=== PATIENT | male | born 1955 | race Caucasian/White ===

== ENCOUNTER 2019-02-11 08:14 | Inpatient (IN) ==
[2019-02-11 09:33] LABS: UR AMPHETAMINES QUAL NONE DETECTED (NONE DETECT); UR BARBITUATES QUAL NONE DETECTED (NONE DETECT); UR BENZODIAZEPIN QUAL PRESUMPTIVE POSITIVE (NONE DETECT); UR CANNABINOIDS QUAL NONE DETECTED (NONE DETECT); UR COCAINE QUAL NONE DETECTED (NONE DETECT); UR METHADONE QUAL NONE DETECTED (NONE DETECT); UR METHAMPHETAMINE QUAL PRESUMPTIVE POSITIVE (NONE DETECT); UR OPIATES QUAL NONE DETECTED (NONE DETECT); UR OXYCODONE QUAL NONE DETECTED (NONE DETECT); UR PCP QUAL NONE DETECTED (NONE DETECT); UR PROPOXYPHENE QUAL NONE DETECTED (NONE DETECT); UR TCA QUAL NONE DETECTED (NONE DETECT)
[2019-02-11] MEDS ORDERED: CATAPRES PO ONE (09:33)
[2019-02-11] MEDS ORDERED: LOPRESSOR PO ONE (10:22)
[2019-02-11] MEDS ORDERED: SALINE LOCK IV FLUID XX ONE ×2 (13:40→15:27)
[2019-02-11] MEDS ORDERED: DESYREL PO PRN (14:25)
[2019-02-11] MEDS ORDERED: ZOFRAN IV PRN (14:25)
[2019-02-11] MEDS ORDERED: TUBERSOL ID ONE (14:25)
[2019-02-11] MEDS ORDERED: ZOFRAN ODT PO PRN (14:25)
[2019-02-11] MEDS ORDERED: IMODIUM PO PRN ×2 (14:25)
[2019-02-11] MEDS ORDERED: ZOFRAN IM PRN (14:25)
[2019-02-11] MEDS ORDERED: NICOTINE GUM BUCCAL PRN (14:25)
[2019-02-11] MEDS ORDERED: MAALOX PLUS LIQUID PO PRN (14:25)
[2019-02-11] MEDS ORDERED: SENOKOT PO PRN (14:25)
[2019-02-11] MEDS ORDERED: TYLENOL PO PRN (14:25)
[2019-02-11] MEDS ORDERED: DULCOLAX PR PRN (14:25)
[2019-02-11] MEDS ORDERED: NICODERM PATCH TD PRN (14:25)
[2019-02-11] MEDS ORDERED: PHENOBARBITAL IV PRN (14:25)
[2019-02-11] MEDS ORDERED: D5W 1,000 ML IV PRN (14:25)
[2019-02-11 14:45] LABS: HEMATOCRIT 45.9 % (42.0-52.0); HEMOGLOBIN 16.5 g/dL (14.0-18.0); MCH 30.4 PG (27-31); MCHC 35.9 g/dL (33-37); MCV 84.5 FL (81-99); MPV 10.5 FL (7.4-10.4); RBC 5.43 XMIL (4.7-6.1); RDW 13.3 % (11.5-14.5); WBC 13.98 X1000 (4.8-10.8)
[2019-02-11 14:47] LABS: INR 1.02; PROTIME 13.9 Seconds (11.0-16.0)
[2019-02-11] MEDS ORDERED: FLU VACCINE IM ONE (15:14)
[2019-02-11 15:17] LABS: AGAP 15; ALBUMIN 4.8 g/dL (3.5-5.0); ALKALINE PHOSPHATASE 104 U/L (32-122); AMYLASE 36 U/L (20-200); BUN 15 mg/dL (8-22); CHLORIDE 100 mmol/L (98-107); COSMO 288; CREATININE 0.8 mg/dL (0.7-1.2); ESTIMATED GFR > 60; GLUCOSE 170 mg/dL (70-104); GOT 26 U/L (10-34); GPT 32 U/L (10-44); LIPASE 13 U/L (13-60); POTASSIUM 4.3 mmol/L (3.5-5.1); SODIUM 142 mmol/L (136-145); TCO2 26 mmol/L (25-35); TOTAL PROTEIN 7.8 g/dL (6.3-8.3)
[2019-02-11] MEDS ORDERED: BENTYL PO PRN (15:27)
[2019-02-11] MEDS ORDERED: PNEUMOVAX 23 IM ONE (15:45)
[2019-02-11] MEDS: LIBRIUM PO SCH ×2 (15:58→21:14)
[2019-02-11] MEDS ORDERED: M.V.I.-12 10 ML, FOLIC ACID 1 MG, MAGNESIUM SULFATE 1 GM, THIAMINE 100 MG in NS 1,000 ML IV ONE (16:30)
[2019-02-11] MEDS: ATARAX PO PRN (18:32)
[2019-02-11] MEDS: EFFEXOR XR PO SCH ×2 (21:14)
[2019-02-11] MEDS: SEROQUEL PO PRN (21:25)
[2019-02-12] MEDS: LIBRIUM PO SCH ×5 (04:39→23:29)
--- NOTE | 2019-02-12 05:50 | PROGRESS NOTE ---
DATE: 02/12/2019 SUBJECTIVE: Patient without any new complaints. He states that he had a terrible day all day yesterday but it did start to improve last night after treatment began. Denies any fevers or chills. PHYSICAL EXAMINATION: Vital Signs: Reviewed, temperature 98 degrees, pulse 91, respiratory 20, BP 102/74. General: The patient is awake. He is in no respiratory distress. HEENT: Normocephalic. Neck: Supple. Cardiovascular: Regular rate. Chest: Clear. Abdomen: Soft. Extremities: Moves all extremities. Neurologic: No changes. ASSESSMENT: 1. Nausea and vomiting. 2. Abdominal pain. 3. Myalgias. 4. Paresthesias. 5. Paroxysmal sweating. 6. Hypertension. 7. Diabetes. 8. High cholesterol. 9. Polysubstance use and abuse. PLAN: We will continue the patient in the hospital. Continue treatment. Continue education. We will wean Librium as tolerated. cc: Holger Wilkerson MD
[2019-02-12] MEDS: PROTONIX PO SCH (06:23)
[2019-02-12] MEDS: ZOCOR PO SCH (08:07)
[2019-02-12] MEDS: GLUCOTROL PO SCH (08:07)
[2019-02-12] MEDS: THERA M PLUS PO SCH (08:07)
[2019-02-12] MEDS: PRINIVIL PO SCH (08:07)
[2019-02-12] MEDS: FOLIC ACID PO SCH (08:08)
[2019-02-12] MEDS: VITAMIN B-1 PO SCH (08:08)
[2019-02-12] MEDS: GLUCOPHAGE PO SCH ×3 (08:08→16:18)
[2019-02-12] MEDS: FLOMAX PO SCH (08:08)
[2019-02-12] MEDS: ATARAX PO PRN (11:24)
[2019-02-12] MEDS: MOTRIN PO PRN (14:43)
[2019-02-12] MEDS: ROBAXIN PO PRN (14:43)
[2019-02-12] MEDS: EFFEXOR XR PO SCH ×2 (22:07→22:08)
[2019-02-12] MEDS: SEROQUEL PO PRN (22:09)
[2019-02-13] MEDS: PROTONIX PO SCH (06:06)
[2019-02-13] MEDS: GLUCOPHAGE PO SCH ×4 (06:06→15:52)
[2019-02-13] MEDS: LIBRIUM PO SCH ×4 (06:06→23:15)
[2019-02-13] MEDS: ZOCOR PO SCH (09:04)
[2019-02-13] MEDS: FOLIC ACID PO SCH (09:04)
[2019-02-13] MEDS: GLUCOTROL PO SCH (09:05)
[2019-02-13] MEDS: PRINIVIL PO SCH (09:06)
[2019-02-13] MEDS: VITAMIN B-1 PO SCH (09:06)
[2019-02-13] MEDS: FLOMAX PO SCH (09:07)
[2019-02-13] MEDS: THERA M PLUS PO SCH (09:07)
[2019-02-13] MEDS: MOTRIN PO PRN (09:30)
[2019-02-13] MEDS: ROBAXIN PO PRN ×2 (09:30→20:28)
[2019-02-13] MEDS: ATARAX PO PRN ×2 (10:28→20:28)
[2019-02-13] MEDS: SEROQUEL PO PRN (20:15)
[2019-02-13] MEDS: EFFEXOR XR PO SCH ×2 (20:15)
[2019-02-14] MEDS: ATARAX PO PRN ×2 (04:00→10:17)
[2019-02-14] MEDS: LIBRIUM PO SCH (06:33)
[2019-02-14] MEDS: GLUCOPHAGE PO SCH ×2 (06:33→11:08)
[2019-02-14] MEDS: PROTONIX PO SCH (06:33)
[2019-02-14] MEDS: THERA M PLUS PO SCH (08:34)
[2019-02-14] MEDS: PRINIVIL PO SCH (08:34)
[2019-02-14] MEDS: FLOMAX PO SCH (08:34)
[2019-02-14] MEDS: GLUCOTROL PO SCH (08:34)
[2019-02-14] MEDS: ZOCOR PO SCH (08:34)
[2019-02-14] MEDS: FOLIC ACID PO SCH (08:35)
[2019-02-14] MEDS: VITAMIN B-1 PO SCH (08:35)
--- NOTE | 2019-02-14 08:37 | PROGRESS NOTE ---
DATE: 02/13/2019 SUBJECTIVE: Patient notes that overall he thinks he is doing better. He had a much better evening yesterday. He is much more calm this morning. PHYSICAL EXAMINATION: Vital Signs: Reviewed. General: Awake, alert, in no respiratory distress. HEENT: Normocephalic. Neck: Supple. Cardiovascular: Regular rate and rhythm. Chest: Clear. Abdomen: Soft. Extremities: Moves all extremities. Neurologic: No changes. ASSESSMENT: 1. Nausea, vomiting, abdominal pain. 2. Myalgias. 3. Paresthesias. 4. Paroxysmal sweating. 5. Tremors, resolved. 6. Chronic anxiety and depression. 7. Hypertension. 8. Diabetes. 9. Benzodiazepine abuse and withdrawal. PLAN: We will continue the patient in the hospital and continue to wean Suboxone. Continue to wean Librium as tolerated. Hopefully can discharge home over the next 1 or 2 days. TIME SPENT: 45 minutes. Counseling. cc: Holger Wilkerson MD
[2019-02-14 13:15] VITALS: BP 151/80
--- NOTE | 2019-02-15 06:43 | DISCHARGE SUMMARY ---
ADMISSION DATE: 02/11/2019 DISCHARGE DATE: 02/14/2019 DISCHARGE DIAGNOSES: 1. Nausea and vomiting. 2. Abdominal pain. 3. Myalgias. 4. Paresthesias. 5. Tremors. 6. Paroxysmal sweating. 7. Hypertension. 8. Diabetes. 9. High cholesterol. CONSULTATIONS: None. PROCEDURES: None. BRIEF HOSPITAL COURSE: The patient is a 63-year-old male who presented to [facility] program secondary to nausea, vomiting, abdominal pain, myalgias, and paresthesias. The patient was treated in the usual fashion, placed on Librium taper. Counseling was performed each day by myself. DISPOSITION: Patient will be discharged home, will follow up outpatient with treatment facility of choice. Discussed with him that he needs outpatient life counseling as well as drug counseling. Avoid stressful situations. Avoid benzodiazepines and alcohol for his stress management. Did discharge him with a 3 day Librium taper as well as hydroxyzine as needed. TIME SPENT: Greater than 30 minutes was spent in total care. cc: Holger Wilkerson MD
--- NOTE | 2019-02-16 07:20 | HISTORY AND PHYSICAL ---
CHIEF COMPLAINT: Nausea and vomiting. HISTORY OF PRESENT ILLNESS: The patient is a 63-year-old male who presented [facility] secondary to nausea, vomiting, abdominal pain, tremors, myalgias. States he has been trying to detox at home, but he has been unsuccessful. He notes that his withdrawal symptoms become severe. He starts having nausea, vomiting, and crampy abdominal pain. States that at the worse point, he was unable to eat or drink, and therefore, he came in. SOCIAL HISTORY: The patient is . He is employed at [employer]. Lives at home in [place]. PAST MEDICAL HISTORY: Significant for hypertension, diabetes, high cholesterol, chronic anxiety, depression. He does have a history of seizures 13 years ago. MEDICATIONS: Glipizide 10, lisinopril 20, metformin 500, simvastatin, Effexor XR, Klonopin 2 mg 3 times daily, Flomax 0.4 daily. ALLERGIES: No known drug allergies. REVIEW OF SYSTEMS: CIWA score is elevated at 24 secondary to moderate tremors while at rest, physical sweating, nausea, vomiting, abdominal pain, occasional dry heaves, anxious, nervous, fidgety, unable to sit still, has difficulty carrying on a direct conversation, easily agitated, having diarrhea. Denies dysuria, frequency, urgency, constipation, melena, hematochezia. Denies weight loss, weight gain. Denies chest pain, palpitations. Denies fevers. Does have paroxysmal sweating, nocturnal chills. SUBSTANCE ABUSE HISTORY: The patient was in the [facility] for outpatient counseling greater than 10 years ago. Notes that benzodiazepines have started to negatively affect his life. Notes he has been taking too many pills for too long. Denies chest pain or palpitations. States that he has started using alcohol in his 20s. Currently rarely drinks. Started depressants around age 45, has progressed up to 2 mg 3 times a day, frequently takes more than that. Does not use opiates on any regular basis. FAMILY HISTORY: Noncontributory. PHYSICAL EXAMINATION: VITAL SIGNS: Reviewed. GENERAL: The patient is awake, alert. He is in no apparent respiratory distress. HEENT: Normocephalic. NECK: Supple. CARDIOVASCULAR: Regular rate. No murmurs. CHEST: Clear, nonlabored. ABDOMEN: Soft, nondistended. EXTREMITIES: Moves all extremities. NEUROLOGIC: Grossly intact. SKIN: Warm and dry. No rashes. ASSESSMENT: 1. Nausea, vomiting. 2. Abdominal pain 3. Paroxysmal sweating. 4. Tremors. 5. Benzodiazepine abuse, withdrawal, and stabilization. 6. Chronic anxiety. 7. Hypertension. 8. Diabetes. 9. High cholesterol. PLAN: Will admit the patient to the hospital. Will place on Librium, taper down as necessary. Will give counseling. Will resume his home medications, and follow. cc: Holger Wilkerson MD MTDD
--- NOTE | 2019-02-22 01:16 | PROVIDER DOCUMENTATION ---
This chart was entered by Lisy Gomes Scribe, acting as scribe for Ludin Johnson MD. [id number] Abuse/Overdose - General Chief Complaint: Req. Detox Stated Complaint: DETOX Time Seen by Provider: 02/11/19 08:57 Source: patient, RN/MD Allergies/Adverse Reactions: Allergies Allergy/AdvReac Type Severity Reaction Status Date / Time No Known Allergies Allergy Verified 02/11/19 08:41 Home Medications: Home Medication List Medication Instructions Recorded Confirmed Last Taken Type Glipizide 10 mg PO DAILY 02/11/19 02/11/19 02/11/19 History Lisinopril 20 mg PO DAILY 02/11/19 02/11/19 02/11/19 History Metformin [Glucophage] 500 mg PO TID 02/11/19 02/11/19 02/11/19 History Simvastatin 20 mg PO DAILY 02/11/19 02/11/19 02/11/19 History Tamsulosin [Flomax] 0.4 mg PO DAILY 02/11/19 02/11/19 02/11/19 History Venlafaxine E.r. [Effexor Xr] 37.5 mg PO HS 02/11/19 02/11/19 02/10/19 History Venlafaxine E.r. [Effexor Xr] 150 mg PO HS 02/11/19 02/11/19 02/11/19 History Chlordiazepoxide [Librium] 25 mg PO Q12H #8 cap 02/14/19 Unknown Rx Hydroxyzine [Atarax] 25 mg PO Q6H PRN PRN #30 tab 02/14/19 Unknown Rx - History of Present Illness-Drug/Alcohol Nature of Presenting Problem: 63 yom presents to er requesting detox from klonopin. pt is shaking on arrival. pt has plan to go to detox next week. - Substance Abuse Substance Use: reports: benzodiazepines Review of Systems - Adult - REVIEW OF SYSTEMS - ADULT Constitutional: reports: no symptoms reported. denies: fever, fatique, night sweats Eyes: reports: no symptoms reported Ears, Nose, Mouth & Throat: reports: no symptoms reported Cardiovascular: reports: no symptoms reported Respiratory: reports: no symptoms reported Gastrointestinal: reports: no symptoms reported Genitourinary: reports: no symptoms reported Musculoskeletal: reports: no symptoms reported Integumentary: reports: no symptoms reported Neurological: reports: see HPI, other (shaking). denies: ataxia, dizzines s/vertigo, headache/migraines Psychiatric: reports: see HPI, alcohol/drug dependence (klonopin). denies: depression, insomnia, panic attacks Endocrine: reports: no symptoms reported Hematologic/Lymphatic: reports: no symptoms reported Allergic/Immunologic: reports: no symptoms reported All Other Systems: Reviewed and Negative Past History - Adult - PAST MEDICAL HISTORY-ADULT Review of Records: reports: Old Records Reviewed, Nursing Assessment Review, Medications Reviewed, Social history reviewed & non-contributory. Major Childhood Illnesses: reports: denies history Cardiovascular: reports: HTN, hyperlipidemia Respiratory: reports: denies history Gastrointestinal: reports: denies history Obstetrical/Gynecological: reports: denies history Genitourinary: reports: denies history Musculoskeletal: reports: denies history Neurological: reports: denies history Endocrine/Immune: reports: Diabetes Diabetes Type: Type 2 Other Conditions: reports: denies history - PRIOR SURGERIES/PROCEDURES Surgical/Procedure History: reports: orthopedic (extremity) - IMMUNIZATION STATUS Childhood Immunizations: See Nurse Assessment Flu Vaccine: See Nurse Assessment - FAMILY HISTORY Family History: reviewed, not pertinent - SOCIAL HISTORY Smoking: non-smoker Substance Use: benzodiazepines Physical Exam-General - PHYSICAL EXAM-ADULT Initial Vital Signs Reviewed: Yes - CONSTITUTIONAL General Appearance: alert, mild distress, other (shaking). negative: cachetic, lethargic, slow to respond - EYES Eyes: PERRL/EOMI, pink conjunctivae - HEAD, EARS, NOSE, MOUTH & THROAT HENMT: normocephalic/atraumatic, moist mucous membranes, normal ENT inspection - NECK Neck: non-tender, full range of motion, supple, normal inspection - RESPIRATORY Respiratory: chest non-tender, lungs clear, normal breath sounds - CARDIOVASCULAR Cardiovascular: normal peripheral pulses, regular rate, rhythm - GASTROINTESTINAL (ABDOMEN) Abdominal Exam: normal bowel sounds, non tender, soft - LYMPHATIC Lymphatic: no adenopathy - MUSCULOSKELETAL Back Exam: normal inspection, no CVA tenderness, no vertebral tenderness Extremity: normal range of motion, non-tender, normal inspection Peripheral Pulses: radial (R): 2+, radial (L): 2+ - SKIN Integumentary: normal color, normal turgor, warm/dry - NEUROLOGIC Neurologic: grossly normal, no motor/sensory deficits - PSYCHIATRIC Psych/Mental Status: normal mood/affect, normal thought content, normal thought process, oriented x 3 Progress - PLAN OF CARE/RESULTS Progress/Plan/Lab Results: Orders Category Date Time Status URINE DRUG SCREEN PL Stat Lab 02/11/19 09:09 Completed Clonidine [Catapres] Med 02/11/19 09:33 Discontinued 0.2 mg PO NOW ONE Metoprolol [Lopressor] Med 02/11/19 10:22 Discontinued 50 mg PO NOW ONE Result Diagrams: 02/11/19 13:00 02/11/19 13:00 - CONSULTS/PCP/HOSPITALIST Notification #1 *Consult/PCP/Hospitalist*: Gilda Time Discussed: 09:08 Consult Disposition: Will see in ED Departure - Departure Date of Disposition Decision: 02/11/19 Time of Disposition Decision: 14:20 DIAGNOSIS: Benzodiazepine abuse, Overdose of benzodiazepine Disposition: HOME 01 Certified Medical Emergency: Emergent Condition: Stable - Critical Care Note This patient required my direct & personal management of CC.: No Attestation - Physician/ NOEMY Attestation Patient care was provided by Advanced Practice Provider:: No The physician spent face to face time with patient:: Yes Advanced Practice Provider documentation review:: Supervising physician onsite and consulted in the evaluation and care of this patient. The physician did have a face to face encounter with the patient. This chart was documented by the indicated scribe, (Lisy Gomes Scribe) and accurately reflects the services I performed and decisions made by me, Ludin Johnson MD, as attested by the provider's signature.
== END 2019-02-14 14:13 | disposition home or self-care (01) | DRG 392 ==
LOC: P.ED 08:14 → P.MEDSURG 13:29
PROVIDERS: ADMIT Family Medicine; ATTEND Family Medicine